=== PATIENT | male | born 1950 | race Caucasian/White ===

== ENCOUNTER 2019-11-28 14:13 | Outpatient (CLI) | payer MEDICARE, SELFPAY ==
--- NOTE | ~2019-11-28 | CT_ITS ---
EXAMINATION:CT lung screening DATE: 11/28/2019 11:41 INDICATION: Nicotine dependence, cigarettes, with unspecified nicotine-induced disorders. TECHNIQUE: Computed tomography (CT) of the chest was performed without intravenous contrast. Automate d exposure control and iterative reconstruction technique were employed. The dose-length product (DLP ) was 128.36 mGy-cm. COMPARISON: None. FINDINGS: There is mild emphysema. There are pleural plaques bilaterally, which may be seen with asbe stos exposure. There is mild atelectasis in the lower lobes. There is a 4 mm nodule in right middle l obe. There is a 7 mm nodule in left upper lobe abutting the pleura. Calcified left lung nodules and c alcified left hilar and mediastinal lymph nodes are consistent with old granulomatous disease. There is a 5 mm nodule in left lower lobe. There is a 4 mm nodule in left lower lobe. No pleural effusion. The heart size is normal. There are coronary artery calcifications. No pericardial effusion. There is a 3 mm stone in right kidney. Calcifications in the spleen are consistent with old granulomatous dis ease. There is mild thoracic spondylosis. There is mild chronic anterior wedging of multiple vertebra l bodies. IMPRESSION: 1. Lung-RADS category 3: Probably benign. Further evaluation is recommended with noncontrast low-dose chest CT in 6 months. Reviewed, dictated and finalized at location A. O PRODUCER IMPRESSION: 1. Lung-RADS category 3: Probably benign. Further evaluation is recommended wit h noncontrast low-dose chest CT in 6 months.
== END 2019-11-28 14:14 | disposition home or self-care (01) ==
LOC: ANHIMG 02-14 14:15
PROVIDERS: PCP Internal Medicine; Visit Provider Internal Medicine
DX: Z12.2 Encounter for screening for malignant neoplasm of respiratory organs (principal); F17.219 Nicotine dependence, cigarettes, with unspecified nicotine-induced disorders
CPT/HCPCS: G0297